=== PATIENT | female | born 1985 | race Caucasian/White ===

== ENCOUNTER 2021-01-19 04:14 | Inpatient (IN) ==
[~2021-01-19 04:14] MED LIST: *HR* Nalbuphine 10 MG/ML AMPUL IV PRN; Famotidine 20 MG/2 ML VIAL IVP PRN; Metoclopramide 10 MG/2 ML VIAL IVP PRN; Naloxone 0.4 MG/ML INJ IVP PRN; Ondansetron 4 MG/2 ML VIAL IVP PRN
[2021-01-19] MEDS ORDERED: EPHEDrine 50 MG/ML VIAL IVP PRN (04:44)
[2021-01-19] MEDS ORDERED: Epidural Premix (fent/bupiv) 110 ML EP SCH (04:45)
[2021-01-19 04:46] LABS: Amphetamine Screen,Urine Negative ng/mL (Cutoff=1000); Barbiturate Screen,Urine Negative ng/mL (Cutoff=200); Benzodiazepines Screen,Urine Negative ng/mL (Cutoff=200); Cannabinoid Screen,Urine Negative ng/mL (Cutoff = 50); Cocaine Screen,Urine Negative ng/mL (Cutoff= 300); Opiate Screen,Urine Negative ng/mL (Cutoff=300); Phencyclidine Screen,Urine Negative ng/mL (Cutoff=25)
[2021-01-19 04:48] LABS: Basophils # 0.1 K/mcL (0.0-0.2); Basophils % 0.5 %; Eosinophils % 0.2 %; Hematocrit 37.7 % (35.3-44.9); Hemoglobin 12.7 g/dL (11.5-15.4); Immature Granulocytes % 0.8 % (0-4); Lymphocytes # 2.3 K/mcL (0.6-4.6); Lymphocytes % 19.6 %; Mean Corpuscular HGB Conc 33.7 g/dL (31.6-35.5); Mean Corpuscular Hemoglobin 31.1 pg (28.0-33.3); Mean Corpuscular Volume 92.2 fL (83.0-100.0); Mean Platelet Volume 10.3 fL (9.4-12.4); Monocytes # 0.5 K/mcL (0.0-1.3); Monocytes % 4.7 %; Neutrophils # 8.6 K/mcL (1.6-8.9); Platelet Count 315 K/mcL (140-400); Red Blood Count 4.09 M/mcL (3.82-4.97); Red Cell Distribution Width 13.2 % (11.5-14.5); Segmented Neutrophils % 74.2 %; White Blood Count 11.5 K/mcL (4.3-11.1)
[2021-01-19] MEDS ORDERED: Oxytocin 20 units/ LR 1000 mL 20 UNIT/1,000 ML BAG IVC SCH ×2 (09:45→22:39)
[2021-01-19] MEDS: Ringers Solution, Lactated 1,000 ML IVC SCH ×2 (09:59→11:12)
[2021-01-19] MEDS ORDERED: *HR* FentaNYL (PF) 100 MCG/2 ML VIAL EP ONE (10:12)
[2021-01-19] MEDS ORDERED: Ropivacaine/PF 0.2% 20 ML VIAL EP ONE (10:12)
[2021-01-19] MEDS ORDERED: Ropivacaine/PF 0.2% 20 ML VIAL ONE (10:16)
[2021-01-19] MEDS ORDERED: *HR* FentaNYL (PF) 100 MCG/2 ML VIAL ONE (10:16)
[2021-01-19] MEDS ORDERED: Acetaminophen 325 MG TABLET PO PRN (22:39)
[2021-01-19] MEDS ORDERED: Lanolin 7 G OINT...G. TP PRN (22:39)
[2021-01-19] MEDS ORDERED: Rho Immune Globulin 1,500 UNIT SYRINGE IM PRN (22:39)
[2021-01-19] MEDS ORDERED: Benzocaine/Menthol 56 GM AEROSOL SPRAY TP PRN (22:39)
[2021-01-19 23:03] VITALS: O2SAT 98
[2021-01-20 05:43] VITALS: PULSE 90
[2021-01-20] MEDS ORDERED: Prenatal Vit/FA 1 EACH TABLET PO SCH (09:00)
[2021-01-20 09:10] VITALS: BP 113/74; TEMP 98.3
== END 2021-01-20 15:19 | disposition home or self-care (01) | DRG 560 ==
LOC: 1NENULAB → 1NENUOBS 22:38
PROVIDERS: ADMIT Obstetrics & Gynecology; ATTEND Obstetrics & Gynecology